=== PATIENT | female | born 1960 | race American Indian/Alaskan Native ===

== ENCOUNTER 2018-09-08 23:33 | Observation (INO) | payer MEDICARE ==
[2018-09-08 23:51] VITALS: BMI 41.9
--- NOTE | 2018-09-09 00:01 | C.PDOC ---
History Of Present Illness 58-year-old female presents to the ED for evaluation of chest pain that has been intermittent for 4 weeks but worsened tonight. Patient was recently evaluated at [facility] [place] for the same. Patient has history of CAD with stents. She denies fever, chills, nausea, vomiting. Chief Complaint (Nursing): Chest Pain History Per: Patient History/Exam Limitations: no limitations Onset/Duration Of Symptoms: Intermittent Episodes Current Symptoms Are (Timing): Worse Quality: "Pain" Past Medical History Reviewed: Historical Data, Nursing Documentation, Vital Signs Vital Signs: Last Vital Signs Temp 97.6 F 09/08/18 23:51 Pulse 85 09/08/18 23:51 Resp 22 09/08/18 23:51 BP 192/106 H 09/08/18 23:51 Pulse Ox 100 09/08/18 23:51 - Medical History PMH: CHF, HTN, Hypercholesterolemia Surgical History: CABG, Coronary Stent (4 stents) Family History: States: Unknown Family Hx - Social History Hx Alcohol Use: Yes Hx Substance Use: No - Immunization History Hx Tetanus Toxoid Vaccination: No Hx Influenza Vaccination: No Hx Pneumococcal Vaccination: Yes Review Of Systems Constitutional: Negative for: Fever, Chills Cardiovascular: Positive for: Chest Pain Gastrointestinal: Negative for: Nausea, Vomiting Physical Exam - Physical Exam Appears: Non-toxic, Other (in mild distress secondary to pain ) Skin: Normal Color, Warm, Dry Head: Atraumatic, Normacephalic Eye(s): bilateral: Normal Inspection Oral Mucosa: Moist Neck: Supple Chest: Symmetrical, No Deformity, No Tenderness Cardiovascular: Rhythm Regular, No Murmur Respiratory: Normal Breath Sounds, No Rales, No Rhonchi, No Wheezing Gastrointestinal/Abdominal: Soft, No Tenderness, No Guarding, No Rebound Extremity: Normal ROM, Capillary Refill (less than 2 seconds ) Neurological/Psych: Oriented x3, Normal Speech, Normal Cognition ED Course And Treatment - Laboratory Results Result Diagrams: 09/09/18 00:27 09/09/18 00:27 ECG: Interpreted By Me, Viewed By Me ECG Rhythm: Sinus Rhythm ECG Interpretation: No Acute Changes, Abnormal Interpretation Of ECG: NSR, LVH , inferior infarct , age undeterminate O2 Sat by Pulse Oximetry: 100 (on RA ) Pulse Ox Interpretation: Normal Progress Note: Bloodwork, CXR, EKG, CT Angio Chest ordered and reviewed. Toradol IVP and IV Fluids given. Disposition Discussed With : Elkin Castle Doctor Will See Patient In The: Hospital Counseled Patient/Family Regarding: Diagnosis - Disposition Disposition: HOSPITALIZED Disposition Time: 03:27 Condition: STABLE Forms: [facility] (Irish) - POA Present On Arrival: None Core Measure Indicators: Chest Pain - Clinical Impression Clinical Impression: Chest pain, CAD (coronary artery disease) - Scribe Statement The provider has reviewed the documentation as recorded by the Scribe (Agnes Mendoza) Provider Attestation: All medical record entries made by the Scribe were at my direction and personally dictated by me. I have reviewed the chart and agree that the record accurately reflects my personal performance of the history, physical exam, medical decision making, and the department course for this patient. I have also personally directed, reviewed, and agree with the discharge instructions and disposition.
[2018-09-09] MEDS ORDERED: Sodium Chloride 0.9% 1,000 ML IV ONE (00:09)
[2018-09-09 00:32] LABS: BASO # 0.1 K/uL (0.0-0.2); BASO % 0.9 % (0.0-2.0); EOS # 0.2 K/uL (0.0-0.7); EOS % 2.7 % (0.0-4.0); HEMOGLOBIN 12.1 g/dL (11.0-16.0); LYMPH # 2.4 K/uL (1.0-4.3); LYMPH % 35.3 % (20.0-40.0); MEAN CELL VOLUME 87.4 fL (81.0-99.0); MEAN CORPUSCULAR HEMOGLOBIN 28.7 pg (27.0-31.0); MEAN CORPUSCULAR HGB CONC 32.8 g/dL (33.0-37.0); MEAN PLATELET VOLUME 10.6 fL (7.2-11.7); MONO # 0.4 K/uL (0.0-0.8); MONO % 6.2 % (0.0-10.0); NEUT # 3.7 K/uL (1.8-7.0); NEUT % 54.9 % (50.0-75.0); NRBC % 0.1 % (0.0-2.0); RBC 4.21 Mil/uL (3.80-5.20); RED CELL DISTRIBUTION WIDTH 14.8 % (11.5-14.5); WHITE BLOOD COUNT 6.7 K/uL (4.8-10.8)
[2018-09-09 00:40] LABS: PROTHROMBIN TIME 10.9 SECONDS (9.7-12.2)
[2018-09-09 00:57] LABS: ALB/GLOB RATIO 1.1 (1.0-2.1); ALBUMIN 4.2 g/dL (3.5-5.0); BLOOD UREA NITROGEN 18 mg/dL (7-17); CALCIUM 9.7 mg/dl (8.6-10.4); GFR NON-AFRICAN AMERICAN > 60
[2018-09-09 01:14] LABS: ALT/SGPT 16 U/L (9-52); AST/SGOT 33 U/L (14-36)
[2018-09-09] MEDS ORDERED: Iodixanol 320 MG/ML 100 ML BOTTLE IV ONE (01:19)
[2018-09-09] MEDS ORDERED: Oxycodone/Acetaminophen 5/325 mg Tab PO PRN (03:39)
--- NOTE | 2018-09-09 07:32 | RAD ---
Date of service: 09/09/2018 PROCEDURE: CHEST RADIOGRAPH, 1 VIEW HISTORY: chest pain COMPARISON: None available. FINDINGS: LUNGS: Shallow inspiration. Limited visualization of the left costophrenic angle. Summation of soft tissues versus small left inferolateral pleural effusion/thickening. PLEURA: No pneumothorax. Small left inferolateral costophrenic angle pathology/small pleural effusion thickening-not excluded. Differential summation of soft tissues. CARDIOVASCULAR: No aortic atherosclerotic calcification present. Cardiomegaly. Midline sternotomy and coronary artery bypass surgery. OSSEOUS STRUCTURES: No significant abnormalities. VISUALIZED UPPER ABDOMEN: Normal. OTHER FINDINGS: Large body habitus. IMPRESSION: Limited visualization of costophrenic angle and possibly summation soft tissues. Minimal left inferolateral pleural effusion/thickening cannot be excluded.
[2018-09-09 08:42] LABS: CK-MB 0.43 ng/mL (0.0-3.38)
--- NOTE | 2018-09-09 08:46 | CT ---
Date of service: 09/09/2018 PROCEDURE: CT Chest with contrast (Pulmonary Angiogram) HISTORY: chest pain/ elevated D-dimer COMPARISON: None available. TECHNIQUE: Axial computed tomography images were obtained of the chest in the pulmonary arterial phase of enhancement. Coronal and sagittal reformatted images were created and reviewed. Intravenous contrast dose: Radiation dose: Total exam DLP = 549.28 mGy-cm. This CT exam was performed using one or more of the following dose reduction techniques: Automated exposure control, adjustment of the mA and/or kV according to patient size, and/or use of iterative reconstruction technique. FINDINGS: PULMONARY ARTERIES: Unremarkable. No pulmonary embolism. AORTA: No acute findings. No thoracic aortic aneurysm. No aortic atherosclerotic calcification or mural plaque present. LUNGS: Thread-like scattered areas of atelectasis and/or scar few in number mostly at the bases. No nodule, mass or pulmonary consolidation. PLEURAL SPACES: Unremarkable. No effusion or pneumothorax. HEART: Mild cardiomegaly. No significant pericardial effusion. Is a small amount of fluid in a anterior inferior pericardial recess however escape LYMPH NODES: No lymphadenopathy. Mediastinal lymph nodes that do not meet CT criteria for suspect pathological enlargement BONES, CHEST WALL: Thoracic spondylosis.. No fracture or destructive lesion midline sternotomy. OTHER FINDINGS: Unremarkable. IMPRESSION: . No pulmonary embolus. No aortic dissection. Concordant results (preliminary interpretation) provided by [facility]. Mild cardiomegaly finding not mention on the preliminary report
[2018-09-09] MEDS: Magnesium Oxide 400 mg Tab UD PO SCH (09:23)
[2018-09-09] MEDS: Multivitamin With Minerals Tab PO SCH (09:24)
[2018-09-09] MEDS: Enoxaparin 40 mg Syringe SC SCH (09:26)
[2018-09-09] MEDS ORDERED: Ergocalciferol 50,000 Intl Units Cap PO SCH (10:00)
[2018-09-09 14:35] LABS: CK-MB 0.54 ng/mL (0.0-3.38)
--- NOTE | 2018-09-09 17:44 | CP.PCM.CON ---
History of Present Illness - History of Present Illness History of Present Illness: 58-year-old female presents to the ED yesterday for evaluation of chest pain that has been intermittent for 4 weeks but worsened tonight. Patient was recently evaluated at [facility] [place] for the same. Patient has history of CAD and CABG with stents. 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 Now feeling better. Having dinner at the time of examination. Past Patient History - Past Social History Smoking Status: Former Smoker - CARDIAC Hx Congestive Heart Failure: Yes Hx Hypercholesterolemia: Yes Hx Hypertension: Yes - PSYCHIATRIC Hx Substance Use: No - SURGICAL HISTORY Hx Coronary Artery Bypass Graft: Yes Hx Coronary Stent: Yes (4 stents) - ANESTHESIA Hx Anesthesia: Yes Hx Anesthesia Reactions: No Meds Allergies/Adverse Reactions: Allergies Allergy/AdvReac Type Severity Reaction Status Date / Time baclofen Allergy Verified 09/09/18 01:24 aspirin AdvReac Verified 09/08/18 23:50 - Medications Medications: Current Medications Aspirin (Aspirin Chewable) 81 mg PO DAILY [facility] Last Admin: 09/09/18 09:24 Dose: 81 mg Ezetimibe (Zetia) 10 mg PO DAILY [facility] Last Admin: 09/09/18 09:24 Dose: 10 mg Enoxaparin Sodium (Lovenox) 40 mg SC DAILY [facility] Last Admin: 09/09/18 09:26 Dose: Not Given Ergocalciferol (Drisdol 50,000 Intl Units Cap) 1 cap PO QWK [facility] Last Admin: 09/09/18 09:30 Dose: 1 cap Hydrochlorothiazide (Hydrodiuril) 25 mg PO DAILY PRN PRN Reason: FLUID RETENTION Magnesium Oxide (Mag-Ox) 400 mg PO DAILY [facility] Last Admin: 09/09/18 09:23 Dose: 400 mg Multivitamins/Minerals (Therapeutic-M Tab) 1 tab PO DAILY [facility] Last Admin: 09/09/18 09:24 Dose: 1 tab Nebivolol (Bystolic) 5 mg PO DAILY [facility] Last Admin: 09/09/18 09:24 Dose: 5 mg Prasugrel (Effient) 5 mg PO DAILY [facility] Last Admin: 09/09/18 09:26 Dose: Not Given Tramadol HCl (Ultram) 50 mg PO TID PRN PRN Reason: Pain, Mild (1-3) Last Admin: 09/09/18 11:22 Dose: 50 mg Physical Exam - Head Exam Head Exam: NORMOCEPHALIC - Neck Exam Neck exam: Positive for: Normal Inspection - Respiratory Exam Respiratory Exam: NORMAL BREATHING PATTERN - Cardiovascular Exam Cardiovascular Exam: REGULAR RHYTHM - Extremities Exam Extremities exam: Positive for: normal inspection - Neurological Exam Neurological exam: Alert, Oriented x3 Results - Vital Signs Recent Vital Signs: Last Vital Signs Temp 98.0 F 09/09/18 16:00 Pulse 63 09/09/18 16:00 Resp 18 09/09/18 16:00 BP 149/89 09/09/18 16:00 Pulse Ox 97 09/09/18 16:00 - Labs Result Diagrams: 09/09/18 00:27 09/09/18 00:27 Labs: Laboratory Results - last 24 hr 09/09/18 09/09/18 09/09/18 00:27 00:27 00:27 WBC 6.7 RBC 4.21 Hgb 12.1 Hct 36.8 MCV 87.4 MCH 28.7 MCHC 32.8 L RDW 14.8 H Plt Count 219 MPV 10.6 Neut % (Auto) 54.9 Lymph % (Auto) 35.3 [place] % (Auto) 6.2 Eos % (Auto) 2.7 Baso % (Auto) 0.9 Neut # (Auto) 3.7 Lymph # (Auto) 2.4 [place] # (Auto) 0.4 Eos # (Auto) 0.2 Baso # (Auto) 0.1 PT 10.9 INR 1.0 APTT 25.0 D-Dimer, Quantitative 442 H Sodium 140 Potassium 4.6 Chloride 106 Carbon Dioxide 27 Anion Gap 12 BUN 18 H Creatinine 0.8 Est GFR ( Amer) > 60 Est GFR (Non-Af Amer) > 60 Random Glucose 100 Calcium 9.7 Total Bilirubin 0.7 AST 33 ALT 16 Alkaline Phosphatase 85 Total Creatine Kinase CK-MB (Mass) Troponin I < 0.0120 Total Protein 8.0 Albumin 4.2 Globulin 3.8 Albumin/Globulin Ratio 1.1 09/09/18 09/09/18 07:57 13:58 WBC RBC Hgb Hct MCV MCH MCHC RDW Plt Count MPV Neut % (Auto) Lymph % (Auto) [place] % (Auto) Eos % (Auto) Baso % (Auto) Neut # (Auto) Lymph # (Auto) [place] # (Auto) Eos # (Auto) Baso # (Auto) PT INR APTT D-Dimer, Quantitative Sodium Potassium Chloride Carbon Dioxide Anion Gap BUN Creatinine Est GFR ( Amer) Est GFR (Non-Af Amer) Random Glucose Calcium Total Bilirubin AST ALT Alkaline Phosphatase Total Creatine Kinase 74 80 CK-MB (Mass) 0.43 0.54 Troponin I < 0.0120 < 0.0120 Total Protein Albumin Globulin Albumin/Globulin Ratio Assessment & Plan (1) CAD (coronary artery disease) Assessment and Plan: CAD and S/P CABG. Cardiac work-up negative so far. No cardiac work-up at this time. Continue home meds. Status: Acute (2) Chest pain Assessment and Plan: Most likely secondary to non- cardiac causes. Discussed with patient. Status: Acute
--- NOTE | 2018-09-09 19:33 | CARD ---
APPROVED REPORT Date of service: 09/08/2018 EKG Measurement Heart [id number] <Conclusion> Normal sinus rhythm Possible Left atrial enlargement Left ventricular hypertrophy Inferior infarct, age undetermined Abnormal ECG
--- NOTE | 2018-09-09 22:41 | CP.PCM.HP ---
Present on Admission - Present on Admission Any Indicators Present on Admission: No Past Patient History - Past Social History Smoking Status: Former Smoker - CARDIAC Hx Congestive Heart Failure: Yes Hx Hypercholesterolemia: Yes Hx Hypertension: Yes - PSYCHIATRIC Hx Substance Use: No - SURGICAL HISTORY Hx Coronary Artery Bypass Graft: Yes Hx Coronary Stent: Yes (4 stents) - ANESTHESIA Hx Anesthesia: Yes Hx Anesthesia Reactions: No Meds Allergies/Adverse Reactions: Allergies Allergy/AdvReac Type Severity Reaction Status Date / Time baclofen Allergy Verified 09/09/18 01:24 aspirin AdvReac Verified 09/08/18 23:50 Results - Vital Signs Recent Vital Signs: Last Vital Signs Temp 98.0 F 09/09/18 16:00 Pulse 63 09/09/18 16:00 Resp 18 09/09/18 16:00 BP 149/89 09/09/18 16:00 Pulse Ox 97 09/09/18 16:00 - Labs Result Diagrams: 09/09/18 00:27 09/09/18 00:27 Labs: Laboratory Results - last 24 hr 09/09/18 09/09/18 09/09/18 00:27 00:27 00:27 WBC 6.7 RBC 4.21 Hgb 12.1 Hct 36.8 MCV 87.4 MCH 28.7 MCHC 32.8 L RDW 14.8 H Plt Count 219 MPV 10.6 Neut % (Auto) 54.9 Lymph % (Auto) 35.3 [place] % (Auto) 6.2 Eos % (Auto) 2.7 Baso % (Auto) 0.9 Neut # (Auto) 3.7 Lymph # (Auto) 2.4 [place] # (Auto) 0.4 Eos # (Auto) 0.2 Baso # (Auto) 0.1 PT 10.9 INR 1.0 APTT 25.0 D-Dimer, Quantitative 442 H Sodium 140 Potassium 4.6 Chloride 106 Carbon Dioxide 27 Anion Gap 12 BUN 18 H Creatinine 0.8 Est GFR ( Amer) > 60 Est GFR (Non-Af Amer) > 60 Random Glucose 100 Calcium 9.7 Total Bilirubin 0.7 AST 33 ALT 16 Alkaline Phosphatase 85 Total Creatine Kinase CK-MB (Mass) Troponin I < 0.0120 Total Protein 8.0 Albumin 4.2 Globulin 3.8 Albumin/Globulin Ratio 1.1 09/09/18 09/09/18 07:57 13:58 WBC RBC Hgb Hct MCV MCH MCHC RDW Plt Count MPV Neut % (Auto) Lymph % (Auto) [place] % (Auto) Eos % (Auto) Baso % (Auto) Neut # (Auto) Lymph # (Auto) [place] # (Auto) Eos # (Auto) Baso # (Auto) PT INR APTT D-Dimer, Quantitative Sodium Potassium Chloride Carbon Dioxide Anion Gap BUN Creatinine Est GFR ( Amer) Est GFR (Non-Af Amer) Random Glucose Calcium Total Bilirubin AST ALT Alkaline Phosphatase Total Creatine Kinase 74 80 CK-MB (Mass) 0.43 0.54 Troponin I < 0.0120 < 0.0120 Total Protein Albumin Globulin Albumin/Globulin Ratio
[2018-09-10 04:32] VITALS: RESP 20
--- NOTE | 2018-09-10 04:58 | HP ---
CHIEF COMPLAINT: Chest pain x1 day. HISTORY OF PRESENT ILLNESS: This is a 58-year-old female well known to me with history of smoking, hypertension, hyperlipidemia, coronary artery disease, status post CABG. She is compliant with her diet, medication, and followup. The patient has anxiety and depression. The patient was recently discharged from [facility] with chest pain, AR was ruled out and the patient underwent an exercise Myoview which was negative. The patient came back to [facility] with chest pain which is substernal, dull, non-radiating. The patient also has upper back pain in the thoracic spine area, chest pain is nonexertional, not associated with diaphoresis, dizziness. No cough. No pleurisy. No dyspepsia. No nausea or vomiting. The patient denies any history of polyuria, polydipsia, polyphagia. She denies any history of dysuria, hematuria or pyuria. She denies any history of sneezing, itchy eyes, itchy nose. There is no history of trauma, fall, or loss of consciousness. No history of seizure-like activity. No history of tingling, numbness, paraesthesia. PAST MEDICAL HISTORY: Hypertension, hyperlipidemia, coronary artery disease, status post CABG, history of prior stent, hyperlipidemia. SOCIAL HISTORY: She smokes. She is social alcohol user. FAMILY HISTORY: Negative for premature coronary artery disease. PHYSICAL EXAMINATION: GENERAL: A middle-aged female, right now she is free of chest pain. VITAL SIGNS: Blood pressure 154/92, pulse 54, respiratory rate 20, temperature 97.6. SKIN: Warm. Good turgor. No bruises. No purpura. No petechiae. No ecchymosis. HEENT: Atraumatic and normocephalic. Negative pallor. Negative jaundice. Extraocular movements are intact. NECK: Supple. No JVD. CHEST: Chest wall, bilateral symmetrical expansion. No tenderness. No deformity. LUNGS: Clear. No rales. No rhonchi. CARDIOVASCULAR SYSTEM: PMI in fifth intercostal space. S1 and S2, regular. ABDOMEN: Soft and nontender. Bowel sounds are positive. RECTAL: No masses. No bleed. PELVIC: No vaginal discharge. No tenderness. EXTREMITIES: No clubbing, cyanosis, or edema. CENTRAL NERVOUS SYSTEM: Awake, alert and oriented x3. Cranial nerves II through XII are normal. Power 5/5 x4. Plantars are downgoing. ASSESSMENT: 1. Atypical chest pain, rule out myocardial infarction. 2. Hypertension. 3. Hyperlipidemia. PLAN: Admit. Detailed orders are written. Seen and examined. Elkin Castle MD
[2018-09-10 08:19] LABS: BASO % 0.4 % (0.0-2.0); EOS # 0.1 K/uL (0.0-0.7); EOS % 2.2 % (0.0-4.0); HEMOGLOBIN 11.5 g/dL (11.0-16.0); LYMPH # 1.3 K/uL (1.0-4.3); LYMPH % 22.6 % (20.0-40.0); MEAN CELL VOLUME 87.1 fL (81.0-99.0); MEAN CORPUSCULAR HEMOGLOBIN 28.2 pg (27.0-31.0); MEAN CORPUSCULAR HGB CONC 32.4 g/dL (33.0-37.0); MEAN PLATELET VOLUME 10.8 fL (7.2-11.7); MONO # 0.4 K/uL (0.0-0.8); MONO % 6.6 % (0.0-10.0); NEUT # 3.9 K/uL (1.8-7.0); NEUT % 68.2 % (50.0-75.0); RBC 4.06 Mil/uL (3.80-5.20); RED CELL DISTRIBUTION WIDTH 14.9 % (11.5-14.5); WHITE BLOOD COUNT 5.7 K/uL (4.8-10.8)
[2018-09-10 08:46] LABS: ALB/GLOB RATIO 1.2 (1.0-2.1); ALBUMIN 3.9 g/dL (3.5-5.0); ALT/SGPT 14 U/L (9-52); AST/SGOT 32 U/L (14-36); BLOOD UREA NITROGEN 12 mg/dL (7-17); CALCIUM 8.9 mg/dl (8.6-10.4); GFR NON-AFRICAN AMERICAN > 60
[2018-09-10] MEDS: Magnesium Oxide 400 mg Tab UD PO SCH (10:26)
[2018-09-10] MEDS: Multivitamin With Minerals Tab PO SCH (10:27)
[2018-09-10] MEDS: Enoxaparin 40 mg Syringe SC SCH (10:28)
--- NOTE | 2018-09-10 13:00 | CP.PCM.CON ---
History of Present Illness - History of Present Illness History of Present Illness: Reason for consultation: Chest pain on deep inspiration and history of lung nodule 58-year-old female with history of coronary artery disease status post CABG and stent placement was admitted complaining of chest pain for the past 4 weeks. Patient was seen by cardiology. CT angiogram of the chest showed no pulmonary embolism or lung nodules. Patient complaining of difficulty or pain in the throat on swallowing and epigastric discomfort. Also complaining of pain in the rib cage on deep inspiration. Patient states that the symptoms started after she developed severe reaction to muscle relaxant. Review of Systems - Review of Systems All systems: reviewed and no additional remarkable complaints except (As above) Past Patient History - Past Social History Smoking Status: Former Smoker - CARDIAC Hx Congestive Heart Failure: Yes Hx Hypercholesterolemia: Yes Hx Hypertension: Yes - PSYCHIATRIC Hx Substance Use: No - SURGICAL HISTORY Hx Coronary Artery Bypass Graft: Yes Hx Coronary Stent: Yes (4 stents) - ANESTHESIA Hx Anesthesia: Yes Hx Anesthesia Reactions: No Meds Allergies/Adverse Reactions: Allergies Allergy/AdvReac Type Severity Reaction Status Date / Time baclofen Allergy Verified 09/09/18 01:24 aspirin AdvReac Verified 09/08/18 23:50 - Medications Medications: Current Medications Aspirin (Aspirin Chewable) 81 mg PO DAILY [facility] Last Admin: 09/10/18 10:28 Dose: 81 mg Ezetimibe (Zetia) 10 mg PO DAILY [facility] Last Admin: 09/10/18 10:27 Dose: 10 mg Enoxaparin Sodium (Lovenox) 40 mg SC DAILY [facility] Last Admin: 09/10/18 10:28 Dose: Not Given Ergocalciferol (Drisdol 50,000 Intl Units Cap) 1 cap PO QWK [facility] Last Admin: 09/09/18 09:30 Dose: 1 cap Hydrochlorothiazide (Hydrodiuril) 25 mg PO DAILY PRN PRN Reason: FLUID RETENTION Last Admin: 09/10/18 06:14 Dose: 25 mg Magnesium Oxide (Mag-Ox) 400 mg PO DAILY [facility] Last Admin: 09/10/18 10:26 Dose: 400 mg Multivitamins/Minerals (Therapeutic-M Tab) 1 tab PO DAILY [facility] Last Admin: 09/10/18 10:27 Dose: 1 tab Nebivolol (Bystolic) 5 mg PO DAILY [facility] Last Admin: 09/10/18 10:27 Dose: 5 mg Prasugrel (Effient) 5 mg PO DAILY [facility] Last Admin: 09/10/18 11:10 Dose: Not Given Tramadol HCl (Ultram) 50 mg PO TID PRN PRN Reason: Pain, Mild (1-3) Last Admin: 09/09/18 20:09 Dose: 50 mg Physical Exam - Head Exam Head Exam: ATRAUMATIC, NORMOCEPHALIC - Eye Exam Eye Exam: Normal appearance - ENT Exam ENT Exam: Mucous Membranes Moist - Respiratory Exam Respiratory Exam: Decreased Breath Sounds - Cardiovascular Exam Cardiovascular Exam: REGULAR RHYTHM - GI/Abdominal Exam GI & Abdominal Exam: Normal Bowel Sounds, Soft - Extremities Exam Extremities exam: Positive for: normal inspection - Neurological Exam Neurological exam: Alert, Oriented x3 Results - Vital Signs Recent Vital Signs: Last Vital Signs Temp 98.3 F 09/10/18 07:00 Pulse 59 L 09/10/18 07:00 Resp 20 09/10/18 07:00 BP 122/83 09/10/18 07:00 Pulse Ox 95 09/10/18 07:00 - Labs Result Diagrams: 09/10/18 08:08 09/10/18 08:08 Labs: Laboratory Results - last 24 hr 09/09/18 09/10/18 09/10/18 13:58 08:08 08:08 WBC 5.7 RBC 4.06 Hgb 11.5 Hct 35.4 MCV 87.1 MCH 28.2 MCHC 32.4 L RDW 14.9 H Plt Count 208 MPV 10.8 Neut % (Auto) 68.2 Lymph % (Auto) 22.6 [place] % (Auto) 6.6 Eos % (Auto) 2.2 Baso % (Auto) 0.4 Neut # (Auto) 3.9 Lymph # (Auto) 1.3 [place] # (Auto) 0.4 Eos # (Auto) 0.1 Baso # (Auto) 0.0 Sodium 133 Potassium 3.9 Chloride 102 Carbon Dioxide 24 Anion Gap 11 BUN 12 Creatinine 0.7 Est GFR ( Amer) > 60 Est GFR (Non-Af Amer) > 60 Random Glucose 110 H Calcium 8.9 Total Bilirubin 0.8 AST 32 ALT 14 Alkaline Phosphatase 79 Total Creatine Kinase 80 CK-MB (Mass) 0.54 Troponin I < 0.0120 Total Protein 7.1 Albumin 3.9 Globulin 3.2 Albumin/Globulin Ratio 1.2 Assessment & Plan (1) Chest pain Status: Acute Comment: CT angina negative for pulmonary embolism and no lung nodules or lymphadenopathy. Patient denies shortness of breath. GI work-up. Follow-up if necessary
[2018-09-10 13:21] VITALS: BP 115/65
[2018-09-10 14:22] VITALS: PULSE 67
--- NOTE | 2018-09-10 17:29 | CP.PCM.PN ---
Subjective - Date & Time of Evaluation Date of Evaluation: 09/10/18 Time of Evaluation: 17:28 - Subjective Subjective: alert and oriented, ambulating with no complaints at this time. Objective - Vital Signs/Intake and Output Vital Signs (last 24 hours): Temp Pulse Resp BP Pulse Ox 98.3 F 67 20 115/65 95 09/10/18 07:00 09/10/18 13:38 09/10/18 07:00 09/10/18 11:00 09/10/18 07:00 Intake and Output: 09/10/18 09/10/18 06:59 18:59 Intake Total 240 500 Balance 240 500 - Medications Medications: Current Medications Aspirin (Aspirin Chewable) 81 mg PO DAILY [facility] Last Admin: 09/10/18 10:28 Dose: 81 mg Ezetimibe (Zetia) 10 mg PO DAILY [facility] Last Admin: 09/10/18 10:27 Dose: 10 mg Enoxaparin Sodium (Lovenox) 40 mg SC DAILY [facility] Last Admin: 09/10/18 10:28 Dose: Not Given Ergocalciferol (Drisdol 50,000 Intl Units Cap) 1 cap PO QWK [facility] Last Admin: 09/09/18 09:30 Dose: 1 cap Hydrochlorothiazide (Hydrodiuril) 25 mg PO DAILY PRN PRN Reason: FLUID RETENTION Last Admin: 09/10/18 06:14 Dose: 25 mg Magnesium Oxide (Mag-Ox) 400 mg PO DAILY [facility] Last Admin: 09/10/18 10:26 Dose: 400 mg Multivitamins/Minerals (Therapeutic-M Tab) 1 tab PO DAILY [facility] Last Admin: 09/10/18 10:27 Dose: 1 tab Nebivolol (Bystolic) 5 mg PO DAILY [facility] Last Admin: 09/10/18 10:27 Dose: 5 mg Prasugrel (Effient) 5 mg PO DAILY [facility] Last Admin: 09/10/18 11:10 Dose: Not Given Tramadol HCl (Ultram) 50 mg PO TID PRN PRN Reason: Pain, Mild (1-3) Last Admin: 09/10/18 15:54 Dose: 50 mg - Labs Labs: 09/10/18 08:08 09/10/18 08:08 PT 10.9 SECONDS (9.7-12.2) 09/09/18 00:27 INR 1.0 09/09/18 00:27 APTT 25.0 SECONDS (21-34) 09/09/18 00:27 Assessment and Plan - Assessment and Plan (Free Text) Assessment: 58-year-old female presents to the ED complaining of chest pain that has been intermittent for 4 weeks. Pt seen and examined. VSS. Patient has no complaints at this time. Pulmonary and Cardiology cleared pt for discharge. Discharge instructions explained to pt. Pt is so resume all home medications and to follow up with PMD in 1 week. Discharge discussed with Dr. Castle.
[2018-09-10 17:40] VITALS: TEMP 97.9; O2SAT 96
--- NOTE | 2018-09-10 22:58 | CP.PCM.DIS ---
Provider - Provider Date of Admission: 09/09/18 03:28 Attending physician: Elkin Castle MD Consults: 09/09/18 03:37 Cardiology Consult Routine Comment: Consulting Provider: Harry Mott Consulting Physician: Harry Mott Reason for Consult: chest pain, cad 09/09/18 11:14 Pulmonology Consult Routine Comment: Consulting Provider: Rodolfo Brown Consulting Physician: Rodolfo Brown Reason for Consult: lung nodule by history Time Spent in preparation of Discharge (in minutes): 30 Hospital Course - Lab Results Lab Results: Most Recent Lab Values WBC 5.7 K/uL (4.8-10.8) 09/10/18 08:08 RBC 4.06 Mil/uL (3.80-5.20) 09/10/18 08:08 Hgb 11.5 g/dL (11.0-16.0) 09/10/18 08:08 Hct 35.4 % (34.0-47.0) 09/10/18 08:08 MCV 87.1 fL (81.0-99.0) 09/10/18 08:08 MCH 28.2 pg (27.0-31.0) 09/10/18 08:08 MCHC 32.4 g/dL (33.0-37.0) L 09/10/18 08:08 RDW 14.9 % (11.5-14.5) H 09/10/18 08:08 Plt Count 208 K/uL (130-400) 09/10/18 08:08 MPV 10.8 fL (7.2-11.7) 09/10/18 08:08 Neut % (Auto) 68.2 % (50.0-75.0) 09/10/18 08:08 Lymph % (Auto) 22.6 % (20.0-40.0) 09/10/18 08:08 Rowan % (Auto) 6.6 % (0.0-10.0) 09/10/18 08:08 Eos % (Auto) 2.2 % (0.0-4.0) 09/10/18 08:08 Baso % (Auto) 0.4 % (0.0-2.0) 09/10/18 08:08 Neut # (Auto) 3.9 K/uL (1.8-7.0) 09/10/18 08:08 Lymph # (Auto) 1.3 K/uL (1.0-4.3) 09/10/18 08:08 Rowan # (Auto) 0.4 K/uL (0.0-0.8) 09/10/18 08:08 Eos # (Auto) 0.1 K/uL (0.0-0.7) 09/10/18 08:08 Baso # (Auto) 0.0 K/uL (0.0-0.2) 09/10/18 08:08 PT 10.9 SECONDS (9.7-12.2) 09/09/18 00:27 INR 1.0 09/09/18 00:27 APTT 25.0 SECONDS (21-34) 09/09/18 00:27 D-Dimer, Quantitative 442 ng/mlDDU (0-243) H 09/09/18 00:27 Sodium 133 mmol/L (132-148) 09/10/18 08:08 Potassium 3.9 mmol/L (3.6-5.2) 09/10/18 08:08 Chloride 102 mmol/L (98-107) 09/10/18 08:08 Carbon Dioxide 24 mmol/L (22-30) 09/10/18 08:08 Anion Gap 11 (10-20) 09/10/18 08:08 BUN 12 mg/dL (7-17) 09/10/18 08:08 Creatinine 0.7 mg/dL (0.7-1.2) 09/10/18 08:08 Est GFR ( Amer) > 60 09/10/18 08:08 Est GFR (Non-Af Amer) > 60 09/10/18 08:08 Random Glucose 110 mg/dL (65-105) H 09/10/18 08:08 Calcium 8.9 mg/dl (8.6-10.4) 09/10/18 08:08 Total Bilirubin 0.8 mg/dL (0.2-1.3) 09/10/18 08:08 AST 32 U/L (14-36) 09/10/18 08:08 ALT 14 U/L (9-52) 09/10/18 08:08 Alkaline Phosphatase 79 U/L (38-126) 09/10/18 08:08 Total Creatine Kinase 80 U/L (30-135) 09/09/18 13:58 CK-MB (Mass) 0.54 ng/mL (0.0-3.38) 09/09/18 13:58 Troponin I < 0.0120 ng/mL (0.00-0.120) 09/09/18 13:58 Total Protein 7.1 g/dL (6.3-8.3) 09/10/18 08:08 Albumin 3.9 g/dL (3.5-5.0) 09/10/18 08:08 Globulin 3.2 gm/dL (2.2-3.9) 09/10/18 08:08 Albumin/Globulin Ratio 1.2 (1.0-2.1) 09/10/18 08:08 Discharge Exam - Head Exam Head Exam: ATRAUMATIC, NORMOCEPHALIC Discharge Plan - Discharge Medications Prescriptions: traMADol [Ultram] 50 mg PO TID PRN #20 tab PRN Reason: Pain, Severe (8-10) - Follow Up Plan Condition: STABLE Disposition: HOME/ ROUTINE Instructions: Heart Healthy Diet, Heart Failure, Adult (DC), Chest Pain (DC), Heart Disease in Women (DC), Coronary Heart Disease (DC), Tramadol Additional Instructions: follow up with PMD in 1 week continue with current meds at home Referrals: Elkin Castle MD [Staff Provider] -
--- NOTE | 2018-09-11 03:35 | DS ---
DISCHARGE DIAGNOSES: 1. Non-coronary chest pain. 2. Thoracic strain. 3. Hypertension. 4. Hyperlipidemia. 5. Anxiety and depression. HOSPITAL COURSE: This is a 58-year-old female with history of coronary artery disease, status post CABG, hypertension, hyperlipidemia, ex-smoker. She came in because of chest pain, upper back pain, nonradiating, not associated with diaphoresis or dizziness. She underwent a recent stress test at [facility]. The patient was treated and observed. The patient remains stable and she is for discharge. Condition upon discharge is stable. The patient is blood pressure controlled. She needs to be compliant with diet and relax. Monitor the patient. Elkin Castle MD
== END 2018-09-10 18:18 | disposition home or self-care (01) ==
LOC: C.ER 23:33 → C.6T 09-09 03:28
PROVIDERS: ADMIT Internal Medicine; ATTEND Internal Medicine
DX: S29.019A Strain of muscle and tendon of unspecified wall of thorax, initial encounter (principal); R07.89 Other chest pain; I25.10 Atherosclerotic heart disease of native coronary artery without angina pectoris; Z95.5 Presence of coronary angioplasty implant and graft; I50.9 Heart failure, unspecified; I11.0 Hypertensive heart disease with heart failure; F32.9 Major depressive disorder, single episode, unspecified; F41.9 Anxiety disorder, unspecified; Z95.1 Presence of aortocoronary bypass graft; E78.00 Pure hypercholesterolemia, unspecified; X58.XXXA Exposure to other specified factors, initial encounter
CPT/HCPCS: 36415; 71045; 71275; 80053; 84484; 85025; 85378; 85610; 85730; 93005; 96374; 99285; G0378; J1885; J7030; Q9967